=== PATIENT | female | born 1960 | race Caucasian/White ===

== ENCOUNTER 2020-01-30 06:06 | Day surgery (SDC) | payer OTHER ==
[~2020-01-30] VITALS: Ht 170.2 cm; Wt 66.8 kg
[~2020-01-30 06:06] MED LIST: TYLENOL PM PO
[2020-01-30] MEDS ORDERED: BENZOCAINE 20% 50 MCG/SPRAY 57 GM TP ONE (06:07)
[2020-01-30] MEDS ORDERED: LIDOCAINE 2% 30 ML JELLY TP ONE (06:07)
[2020-01-30] MEDS ORDERED: LIDOCAINE 4% 50 ML SOLUTION TP ONE (06:07)
[2020-01-30] MEDS ORDERED: ALBUTEROL SULFATE 2.5 MG/0.5 ML NEB SOLUTION NEB ONE (06:07)
[2020-01-30] MEDS ORDERED: SODIUM CHLORIDE 0.9% 1,000 ML ONE (06:25)
[2020-01-30] MEDS ORDERED: SODIUM CHLORIDE 0.9% 1,000 ML IV ONE (06:30)
[2020-01-30] MEDS ORDERED: MIDAZOLAM HCL 2 MG/2 ML VIAL ONE (08:11)
[2020-01-30] MEDS ORDERED: FentaNYL CITRATE-PF 100 MCG/2 ML VIAL ONE (08:12)
[2020-01-30] MEDS ORDERED: MethylPREDNISolone SOD SUCC 125 MG/2 ML VIAL IVP ONE (09:00)
[2020-01-30] MEDS ORDERED: MethylPREDNISolone SOD SUCC 125 MG/2 ML VIAL ONE ×2 (09:20→09:23)
[2020-01-30] MEDS ORDERED: OXYGEN THERAPY IH SCH (20:00)
== END 2020-01-30 10:20 | disposition home or self-care (01) ==
LOC: SURGERY 06:06
PROVIDERS: ATTEND Internal Medicine Critical Care Medicine
DX: B37.0 Candidal stomatitis (principal); J38.4 Edema of larynx; Z87.891 Personal history of nicotine dependence; Z98.890 Other specified postprocedural states; Z79.899 Other long term (current) drug therapy
CPT/HCPCS: 31623; 31624; 71045; 87015; 87070; 87101; 87206; 87220; 87426; 88108; 88312; J2250; J2930; J3010; J7030; 87205; J7613; Z7610